=== PATIENT | female | born 1990 | race Asian ===

== ENCOUNTER 2016-10-02 00:02 | Emergency (ER) | payer SELFPAY ==
[~2016-10-02] VITALS: Ht 152.4 cm; Wt 56.0 kg
[2016-10-02 03:34] VITALS: BP 131/84
== END 2016-10-02 03:00 | disposition home or self-care (01) ==
LOC: ER 00:04
DX: M79.604 Pain in right leg (principal); Z88.3 Allergy status to other anti-infective agents
CPT/HCPCS: 71010; 81025; 99283